=== PATIENT | male | born 1960 | race Caucasian/White ===

== ENCOUNTER → 2022-06-25 10:27 | Outpatient (CLI) | payer MEDICARE, SELFPAY ==
[2022-06-25 11:39] LABS: Hemoglobin A1C% w Est Avg Glu 5.7 % (4.0-6.0)
[2022-06-25 12:07] LABS: BUN Creatinine Ratio 15.7 (6-22); Blood Urea Nitrogen 13 mg/dL (9-20); Calcium 9.7 mg/dL (8.4-10.2); Carbon Dioxide 23 mmol/L (22-32); Chloride 100 mmol/L (98-107); Estimated Glomerular Filt Rate > 60 mL/min (>60); Glucose 114 mg/dL (80-110); HEMOLYSIS < 15 (0-50); Potassium 4.7 mmol/L (3.4-5.1); Sodium 136 mmol/L (137-145)
[2022-06-26 14:23] LABS: Appearance Urine UA CLEAR; Bilirubin Urine UA NEGATIVE (NEGATIVE); Color Urine UA YELLOW; Glucose Urine UA NEGATIVE (Negative); Ketones Urine UA NEGATIVE (NEGATIVE); Leukocyte Esterase Urine UA NEGATIVE (NEGATIVE); Nitrite Urine UA NEGATIVE (Negative); Occult Blood Urine UA 1+ (Negative); Protein Urine UA NEGATIVE (Negative); Urobilinogen Urine UA 0.2 E.U./dL (0.2)
[2022-06-26 14:42] LABS: Bacteria Urine None Seen; Culture Indicated Urine Cult Not Indicated; RBC Urine 1-5/HPF (0-5/HPF); Squamous Epithelial Cell Urine 0-1 /HPF (0-5/HPF); WBC Urine 0-1/HPF (0-5/HPF)
== END ==
PROVIDERS: Referring Provider Orthopaedic Surgery; Visit Provider Orthopaedic Surgery
DX: Z01.818 Encounter for other preprocedural examination (principal); R73.9 Hyperglycemia, unspecified; Z01.812 Encounter for preprocedural laboratory examination; N39.0 Urinary tract infection, site not specified
CPT/HCPCS: 36415; 80048; 81001; 83036; 93005

== ENCOUNTER → 2022-07-07 12:57 | Outpatient (CLI) | payer OTHER, SELFPAY ==
[2022-07-07 14:19] LABS: COVID19 -Nasal RAPID Negative (Negative)
== END ==
PROVIDERS: PCP Internal Medicine; Referring Provider Orthopaedic Surgery; Visit Provider Orthopaedic Surgery
DX: Z20.822 Contact with and (suspected) exposure to COVID-19 (principal)
CPT/HCPCS: 87635; C9803

== ENCOUNTER 2022-07-08 09:14 | Inpatient (IN) | payer OTHER, SELFPAY ==
[2022-07-01 13:49] VITALS: BMI 26.9
[2022-07-08] VITALS (18 sets, daily range): BP systolic 121–195; BP diastolic 58–127; PULSE 77–105; RESP 14–23; TEMP 36.1–37.4; O2SAT 94–99; BMI 26.9
--- NOTE | 2022-07-08 | DI.RAD.S_ITS ---
PROCEDURE: XR HIP W PEL IF DONE RT 2V INDICATIONS: right post op total hip TECHNIQUE: AP pelvis and lateral view of the right hip acquired. COMPARISON: None. FINDINGS: Bones: Patient is status post right hip arthroplasty, with hardware components in expected positions. The hip joint appears congruent. The visualized bony structures appear intact. Soft tissues: Overlying postoperative changes are noted. No suspicious soft tissue densities. IMPRESSION: Expected postsurgical change for right hip arthroplasty. Dictated by: Nida Adams MD, PhD on 07/08/2022 at 15:43 Approved by: Nida Adams MD, PhD on 07/08/2022 at 15:44
--- NOTE | 2022-07-08 06:00 | DI.RAD.S_ITS ---
PROCEDURE: XR PELVIS 1-2V INDICATIONS: intra op rt hip TECHNIQUE: Intra-operative view of the pelvis and hip acquired. COMPARISON: None. FINDINGS: Bones: Intraoperative devices prior to placement of arthroplasty prostheses are in expected positions. No fractures or suspicious bony lesions. Soft tissues: Overlying surgical retractors are present, along with other intraoperative changes. IMPRESSION: Expected intraoperative postsurgical change for right hip arthroplasty. Dictated by: Nida Adams MD, PhD on 07/08/2022 at 14:27 Approved by: Nida Adams MD, PhD on 07/08/2022 at 14:28
[2022-07-08] MEDS: ACETAMINOPHEN 325 MG TABLET 975 MG PO (09:53)
[2022-07-08] MEDS: CELECOXIB 200 MG CAPSULE PO (09:54)
[2022-07-08] MEDS: LACTATED RINGERS 1,000 ML 42 ML IV ×3 (10:00→13:37)
[2022-07-08] MEDS: VANCOMYCIN 1,000 MG/200 ML PIGGYBACK 200 MG IV (10:10)
--- NOTE | 2022-07-08 11:06 | PM.PREOP ---
Pre-operative Note COVID-19 COVID-19 status: Negative Interval Note History & Physical reviewed/Exam performed by Physician: Yes Changes to H&P: No
--- NOTE | 2022-07-08 11:15 | PM.OP.1 ---
Operative Date/Time/Diagnoses Date of procedure: 07/08/22 Time of procedure: 11:30 Pre-op diagnosis: right hip posttraumatic OA, retained blade plate Post-op diagnosis: same Procedure & Clinicians Procedure: Right total hip arthroplasty with revision components, removal of retained internal fixation blade plate and screws Same procedure as scheduled: Yes Indications: The patient has had a history of a complex right proximal femur fracture which went on to a delayed union and required revision surgery with a blade plate. He then had longstanding problems with his hip with disability and severe pain. He has had Progressively worsening right hip pain with radiographic changes consistent with arthritis, avascular necrosis of the femoral head and a retained blade plate was significant destruction of the acetabulum. Non-operative management has failed and the patient has requested total hip replacement. The risks, benefits and alternatives to surgery were discussed with the patient prior to proceeding. Risks discussed included, but were not limited to, failure to relieve pain, leg length discrepancy, dislocation, stiffness, infection, nerve damage, deep venous thrombosis, pulmonary embolism, stroke, coma, heart attack, permanent paralysis and , as well as the potential need for eventual revision of the prosthetic. Surgeon: Nella Wiley Six Color Press Operator: Rigoberto Naidu Anesthesia Type: General Operative Notes Findings: Severe destruction of the femoral head and acetabulum, soft bone, some deformity of the proximal femur, which stability with religious of some of the leg length discrepancy, adequate bone, no evidence of infection Closure Type: primary Specimen(s): other (One culture) Prosthetic devices, grafts, tissues, transplants, or devices: Wiley and nephew redapt size 19 x 190 femoral stem, 36 by -3 Oxinium femoral head, 54 R3 cup, neutral poly liner, one 6.5 mm screw Applied: drain(s) Estimated Blood Loss (mL): 250 Blood products transfused: none Procedure in detail: The patient was seen in the pre-operative area, where the patient identified the right hip as the operative site and this was marked with my initials. The patient received pre-operative antibiotics and was taken to the operating room and placed on the operative table in the left lateral decubitus position after satisfactory anesthesia. A director of hospitality out was performed. The right leg was prepared from the ankle to the iliac crest with ChloroPrep in the usual fashion and draped through sterile drapes. The hip was approached through an approximately 30 cm incision centered over the greater trochanter and curving gently posteriorly as it went proximally. He had a very extensive previous lateral incision which was used for a substantial component of the incision in order to allow for removal of the retained internal fixation and the blade plate. This was carried sharply to the fascia mary ann, which was divided and retracted with a self retaining retractor. An incision was made in the vastus lateralis after the fascia had been opened. The vastus was retracted primarily anteriorly. Dissection was carried out down to the proximal femur and the blade plate. The blade plate was then meticulously freed from bone. I used a small osteotome to chip bone away from the edge of the plate going down to the most distal aspect of the plate and also freeing it distally in order to allow the plate to slide distally as it was removed. The screws were removed. The blade plate handle was then placed on the blade plate and after meticulously freeing all scar tissue and soft tissues as well as some overlying bone from the plate the blade plate was removed. Next attention was directed to the more proximal aspect of the wound in the posterolateral approach to the hip. The trochanteric bursa was excised with care being taken to avoid the sciatic nerve, which was identified and protected throughout the case. The short external rotators were incised and the capsulomuscular flap was raised and tagged for later repair. Proximally half a cm of gluteus elicia insertion was released for the feet from the femur in order to allow mobilization of the femur. He had severe stiffness preoperatively. Had an 80 duction contracture his preoperative flexion was limited to about 30? with essentially no rotation. We meticulously mobilized the soft tissues. I specifically stripped all the short external rotators and the piriformis from the posterior aspect of the trochanter. I then dissection down more superiorly along the hip capsule and released anterior capsule and also release capsule along the posterior rim of the acetabulum in order to allow dislocation of the hip. Also incised along the inferior aspect of the capsule in order to allow dislocation of the hip. The hip was dislocated, and a femoral neck osteotomy performed approximately 15 mm above the lesser trochanter. Retractors were placed around the femur. The canal was opened with a box cutting osteotome, followed by a T handled reamer and a lateralizing reamer. The the lateralizing Reamer was used and then it was followed by sequential reaming. I could tell that I was getting a casket inspector distally. I used initially the Synergy technology and went up to a 16. It really did not feel like there was adequate rotational stability of the broach and I felt that we should probably switch to read cora technology in order to get a better casket inspector on the femur. I packed an E tape into the femur at this point and switched to working on the acetabulum. Retractors were placed to expose the acetabulum. The labrum and central soft tissues were removed. There was significant deformity of the acetabulum. I specifically centralized it initially and then progressively slowly reamed up the acetabulum. There was moderate amount of osteophyte more laterally both on the anterior aspect of the acetabulum as well as straight superior and posteriorly. Reaming was performed initially going up in 2 mm increments, then 1 mm increments until good bite was obtained with an odd sized reamer. The cup 1 mm larger than the last reamer was then inserted using the appropriate anteversion guides. The cup did have reasonable bite but was further stabilized with a screw which provided excellent bite. A trial neutral liner was placed. At this point we sequentially reamed until there was good chatter and good fixation with a read up Reamer. Initially went up to a 18 x 190. The body Reamer was placed in it was reamed. The broach was placed with the head and neck piece. A trial head and neck were then placed and the hip relocated and checked for leg length and stability. Some of the leg length discrepancy had been restored. It was actually pretty tight with a -3 femoral head. An intraoperative film confirmed the component position and no evidence of fracture. The patient was stable in the position of sleep, of squatting, and could be put through a range of motion with 45 degrees internal rotation without dislocation. At 80 degrees flexion, internal rotation to 70 was possible before dislocation. I felt I could go up 1 additional size in the femur and I meticulously reamed for insertion of a 19 mm stem. This was felt to be satisfactory and the appropriate components were opened, and the trials were removed. It was still quite stiff and the reduction was somewhat difficult. The acetabular liner was impacted into position. The final stem was then impacted into the prepared femoral canal. A brief Betadine soak was performed while trialing with head options. The hip was meticulously irrigated with normal saline. Finally the femoral head was impacted onto the stem. The acetabulum was cleared of all material and the hip relocated one final time. The capsulomuscular flap was then repaired to the greater trochanter though an awl hole using the tag sutures. The short external rotators were repaired with a nonabsorbable suture. A deep drain was placed and brought out anteriorly. Vastus lateralis was carefully closed. The fascia mary ann was closed with Vicryl. The subcutaneous layer was closed with barbed sutures and skin carmen. A karina dressing was applied and the patient was taken to recovery having tolerated the procedure well. Complications: none Post-operative Condition: stable Disposition: Acute Care Plan for aftercare: The patient will be maintained on a standard total hip replacement protocol with weight bearing as tolerated and posterior hip precautions. The patient will receive Aspirin and sequential compression devices for DVT prophylaxis. The patient will be discharged home when safe for the home environment.
[2022-07-08] MEDS: CEFAZOLIN 2 GM/100 ML PREMIX 100 ML IV ×2 (11:16→18:00)
[2022-07-08] MEDS: TRANEXAMIC ACID 1,000 MG VIAL 2000 MG INJ ×2 (11:39→14:05)
[2022-07-08] MEDS: BUPIVACAINE LIPOSOME 266 MG/20 ML VIAL INJ (12:00)
[2022-07-08] MEDS: BUPIVACAINE 0.25% (PF) 60 ML, EPINEPHrine 0.3 MG INJ (12:02)
[2022-07-08] MEDS: BUPIVACAINE 0.5% (PF) VIAL 30 ML INJ (12:05)
--- NOTE | 2022-07-08 12:12 | SUR.OPER ---
Lateral on padded Truman flat table. Gel axillary roll. Arms secured on padded armboard with pillow supporting top arm. Padded hip positioner braces x4 - anterior and posterior chest and pelvis. Additional gel pad used anterior pelvis. Gel pad under bottom leg from knee to foot and secured with tape over sheet.
[2022-07-08] MEDS: HYDROMORPHONE 2 MG INJ IV ×4 (14:58→15:21)
[2022-07-08] MEDS: hydrOXYzine 50 MG/ML INJ 25 MG IM (15:00)
[2022-07-08] MEDS: LABETALOL 20 MG/4 ML SYRINGE 10 MG IV (15:06)
[2022-07-08] MEDS: OXYCODONE IR 5 MG TABLET PO (15:28)
[2022-07-08] MEDS: HYDROMORPHONE 0.5 MG INJ 0.2 MG IV ×2 (16:20→20:51)
[2022-07-08] MEDS: LACTATED RINGERS 1,000 ML 125 ML IV (16:23)
[2022-07-08] MEDS: ONDANSETRON 4 MG/2 ML INJ IV (16:27)
[2022-07-08] MEDS: OXYCODONE IR 10 MG TABLET PO (16:28)
--- NOTE | 2022-07-08 17:41 | PT-IP ANOTE ---
Checked on pt and RN and PICTURE FRAME MAKER in room trying to get him comfortable. Pt refused PT d/t significant pain at this time. Check in AM.
[2022-07-08] MEDS: HYDROMORPHONE 2 MG TABLET PO (17:54)
[2022-07-08] MEDS: ACETAMINOPHEN 325 MG TABLET 650 MG PO (17:59)
[2022-07-08] MEDS: IBUPROFEN 400 MG TABLET PO (17:59)
[2022-07-08] MEDS: ASPIRIN EC 81 MG TABLET PO (20:50)
[2022-07-08] MEDS: LOSARTAN 50 MG TABLET PO (20:50)
[2022-07-08] MEDS: ATORVASTATIN 20 MG TABLET 10 MG PO (20:50)
[2022-07-08] MEDS: DOCUSATE 100 MG CAPSULE PO (20:52)
[2022-07-09] VITALS: BP 144/82; PULSE 86; RESP 14; TEMP 37.4; O2SAT 95
[2022-07-09] MEDS: LACTATED RINGERS 1,000 ML 125 ML IV (02:01)
[2022-07-09] MEDS: CEFAZOLIN 2 GM/100 ML PREMIX 100 ML IV (03:19)
[2022-07-09 04:20] VITALS: BP 141/64; PULSE 81; RESP 16; TEMP 36.7; O2SAT 96
[2022-07-09 06:02] LABS: Hematocrit 30.1 % (41-53); Hemoglobin 10.5 g/dL (13.5-17.5)
[2022-07-09] MEDS: OXYCODONE IR 5 MG TABLET PO (07:00)
--- NOTE | 2022-07-09 07:22 | P.DS_ITS ---
History of Present Illness History of Present Illness Date Patient Seen: 07/09/22 Time Patient Seen: 07:22 Chief complaint: Right hip pain Narrative: Patient's pain has been moderate. Denies fever or chills. No nausea vomiting. Patient has been able to get up with assistance and urinate on his own. He has his home to assist him. Otherwise without complaints. Discharge Providers Provider Date of admission: 07/08/22 09:14 Discharge Date: 07/09/22 Primary care physician: Qamar Marie MD Consults: 07/08/22 06:00 Consult to Anesthesiology Routine Comment: Consulting Provider: Anesthesiologist Reason for consultation: Regional block for post operative pain control 07/08/22 16:04 Consult to Discharge Planning Routine Comment: Consult to Physical Therapy Evaluate & Treat Comment: Physician Instructions: post op THALIA protocol Discharge provider: Rigoberto Naidu PA-C Summary Hospital Course Discharge Diagnosis: Right hip posttraumatic osteoarthritis, retained blade plate Postop anemia due to acute blood loss during surgery Hospital Course: Right total hip arthroplasty with revision components, removal of retained internal fixation blade plate and screws Same procedure as scheduled: Yes Indications: The patient has had a history of a complex right proximal femur fracture which went on to a delayed union and required revision surgery with a blade plate.? He then had longstanding problems with his hip with disability and severe pain.? He has had Progressively worsening right hip pain with radiographic changes consistent with arthritis, avascular necrosis of the femoral head and a retained blade plate was significant destruction of the acetabulum. Non-operative management has failed and the patient has requested total hip replacement. The risks, benefits and alternatives to surgery were discussed with the patient prior to proceeding. Risks discussed included, but were not limited to, failure to relieve pain, leg length discrepancy, dislocation, stiffness, infection, nerve damage, deep venous thrombosis, pulmonary embolism, stroke, coma, heart attack, permanent paralysis and , as well as the potential need for eventual revision of the prosthetic. Surgeon: Nella Wiley Meringuer: Rigoberto Naidu Anesthesia Type: General Operative Notes Findings: Severe destruction of the femoral head and acetabulum, soft bone, some deformity of the proximal femur, which stability with yazdanism of some of the leg length discrepancy, adequate bone, no evidence of infection Closure Type: primary Specimen(s): other (One culture) Prosthetic devices, grafts, tissues, transplants, or devices: Wiley and nephew redapt size 19 x 190 femoral stem, 36 by -3 Oxinium femoral head, 54 R3 cup, neutral poly liner, one 6.5 mm screw Applied: drain(s) Estimated Blood Loss (mL): 250 Blood products transfused: none Patient admitted for the above-mentioned procedure. Patient consented to the same. Patient taken operating room. Patient back in his room recovering well as in stable condition. Patient urinating on his own. Pain is well managed. Patient will work with Physical therapy this morning. Patient will be discharged home today after physical therapy if safe for home environment. Follow up in [facility] in 2 weeks as scheduled. Status at Discharge Cognitive/behavioral status at discharge: at baseline, oriented Functional status at discharge: uses cane/walker Overall status at discharge: patient is progressing back to baseline Exam Vital Signs (past 8 hours): - 07/09/22 00:00 07/09/22 04:20 Temperature 99.4 F 98.1 F Pulse Rate 86 81 Respiratory Rate 14 16 Blood Pressure 144/82 H 141/64 H Pulse Oximetry 95 96 Oxygen Flow Rate 0 0 Oxygen Delivery Method Room Air Oxygen Flow Rate 0 Narrative Exam Narrative: 62-year-old male resting comfortably in bed in no apparent distress. Karina dressing is on and functioning. Dressing is clean, dry and intact. Motor functions intact right lower extremity. Sensation grossly intact to light touch right lower extremity. Hemovac is also in place. Const General: cooperative and comfortable Orientation: alert HENMT Head: normal to inspection Resp Effort & Inspection: normal respiratory effort and able to speak in complete sentences Objective Labs Result Diagrams: 07/09/22 05:38 Labs: Laboratory Results - last 24 hr 07/09/22 05:38 Hgb 10.5 L Hct 30.1 L PFSH Medical History COVID-19 virus infection (01/21/22) Deviated septum Fall (~2007) HLD (hyperlipidemia) HTN (hypertension) Osteonecrosis Surgical History History of orthopedic surgery (~2007) History of orthopedic surgery (11/2008) History of orthopedic surgery (~2007) Hx of foot surgery (~2007) Social History household members: spouse and children Smoking Status: Current every day smoker alcohol intake: former Discharge Assessment & Plan Assessment and Plan Assessment: Patient progressing as expected. postop anemia due to blood loss during surgery Plan of Treatment: Discontinue Hemovac prior to discharge Karina instructions reviewed. Multimodal pain management Patient be maintained on standard total hip replacement protocol with weight- bearing as tolerated and posterior hip precautions Aspirin and SCDs for DVT prophylaxis Discharge home today after physical therapy if safe for home environment Discharge Plan Discharge Plan Patient Disposition: Home Provider Discharge Comment: Discharge home today after physical therapy if safe for home environment Discharge orders & Medications Prescriptions: New acetaminophen 325 mg Tablet 650 mg PO Q6HR Qty: 60 0RF aspirin 81 mg Tablet,Delayed Release (Dr/Ec) 81 mg PO BID Qty: 60 0RF docusate sodium 100 mg Capsule 100 mg PO BID Qty: 20 0RF ibuprofen 400 mg Tablet 400 mg PO Q6HR Qty: 60 0RF oxycodone 10 mg Tablet 10 mg PO Q3HR PRN (Reason: Pain, Severe (7-10)) Qty: 60 0RF Continued losartan 50 mg Tablet 50 mg PO QPM simvastatin 20 mg Tablet 20 mg PO QPM omeprazole 20 mg Tablet,Delayed Release (Dr/Ec) 20 mg PO QPM docusate sodium [Colace] 100 mg Capsule 250 mg PO DAILY simethicone [Gas-X Extra Strength] 125 mg Capsule 125 mg PO DAILY Discontinued ibuprofen 200 mg Tablet 800 mg PO QPM oxycodone 10 mg Tablet 10 mg PO QID Follow up/Referrals: Qamar Marie MD [Primary Care Provider] - Nella Wiley MD [Physician] - As previously scheduled (Two weeks as scheduled) Diet/Activity/Treatments Diet: Diet as Tolerated Activity: Weightbearing as tolerated, posterior hip precautions Skin/Wound/Dressing Care Report to your healthcare provider any signs of infection, such as:: chills, fever, increased pain, unusual drainage and unusual redness Dressing: Keep dressing clean and dry, karina dressing instructions provided Visit Report/Discharge Packet Instructions: DI for Hip Replacement, DI for Prescription Opioid Use Stand Alone Forms: Surgery Discharge Discharge Data Primary Care Provider: Qamar Marie
[2022-07-09 08:11] VITALS: BP 134/70; PULSE 85; RESP 17; TEMP 36.7; O2SAT 96
[2022-07-09] MEDS: DOCUSATE 100 MG CAPSULE PO (08:31)
[2022-07-09] MEDS: ASPIRIN EC 81 MG TABLET PO (08:31)
--- NOTE | 2022-07-09 08:42 | CM.DANOTE ---
DCP Assessment: Payor confirmed: [employer] PCP confirmed: Qamar Marie MD Pt is a 62 y.o. M who presented to the hospital for a scheduled R THALIA surgery with Dr. Wiley. Pt brought up to the AC unit for post operative management of surgical procedure. DCP met with pt this morning to discuss discharge needs. Pt laying in bed. DCP introduced self and role. Pt is independent at baseline. Pt lives in [place] with his spouse, Sissy. Pt denies DME use and states that he can drive but has not been driving lately due to the pain in his leg. Pt does not have outpatient PT scheduled [facility] Pt to work with PT today to determine any needs. Whiteboard updated and instructed to call. Pt thankful for discussion. P: Pt to work with PT today. Once clear, anticipate discharge home via spouse POV. DCP to continue to follow and await PT recommendations. Namrata Moraes RN/BETINA Discharge Planning/Care Management Advanced directive, confirm from FAMILY Start: 07/08/22 18:07 Freq: Q24H Status: Active Protocol: Document 07/08/22 19:55 MS (Rec: 07/08/22 22:31 MS [id number]) Advance Directive, confirm on record Time 22:28 Person contacted Pt Copy received No CM Discharge Assessment Start: 07/09/22 08:39 Freq: Status: Active Protocol: Document 07/09/22 08:39 AJ (Rec: 07/09/22 08:41 AJ [id number]) Discharge Planning Assessment Assigned Tie Worker Namrata Moraes RN/BETINA Advance Directives? No Advance Directives on File No History Provided By Patient Prior Living Arrangements House Household Members spouse,children Type of transporation used prior to Drives own vehicle admit Independent with ADL's Yes Is patient alert and oriented? Yes Discharge Plan Home Referrals Initiated None needed Additional Comment At this time. Whiteboard Updated in Patient Room with Yes name and ext. # of Tie Worker Comment Instructed to call Review Status In Process Please Provide Date Initial DC 07/09/22 Assessment Was Performed Next Review Type Continued Stay Review Pre-Anesthesia Assessment Start: 07/01/22 13:49 Freq: Status: Active Protocol: Document 07/01/22 13:49 CAB (Rec: 07/01/22 14:38 CAB [id number]) Pre-Anesthesia Assessment Preferred Name [place] Patient Information Reviewed Via Phone Assessment Assessment Completed With Patient Diagnostic Results BMP/CMP,EKG Comment Labs (BMP, UA only)/ECG @ [facility] 06/25/22, COVID screen @ [facility]- needs to schedule Primary Care Provider Qamar Marie Seen Specialist in Last 12 Months Yes Specialist Seen Orthopedist Primary Language Hebrew Net Sql Developer Required No Height 175.26 cm Weight 82.554 kg Body Mass Index (BMI) 26.9 Hearing Ability Normal Visual Assist Glasses Dentition Type Teeth, Natural Present,Teeth, Missing Barriers to Learning None Hx Anesthesia Reactions No Hx Family Anesthesia Reaction No Hx Malignant Hyperthermia No Hx Blood Transfusions No Anesthesia Review Requested No alcohol intake former Smoking Status Current every day smoker Tobacco type cigarettes Smoking packs per day 0.75 Substance Use Type marijuana Comment Advised not to smoke marijuana 24 hours prior Pain Present Pain Reported Musculoskeletal Symptoms Abnormal Gait,Back Pain, Difficulty Walking,Joint Pain History of Falling (Recent or History of No ) Patient is completely paralyzed or No completely immobile Prosthesis or Orthotic Device Cane,Front Wheel Walker Mental Status Oriented to own ability Is patient on oxygen? No Does patient have JALLOH/SOB No Hx Sleep Apnea No Currently Taking a Beta Seth No Hx Chest Pain No Hx SOB No Hx Syncope or Dizziness No Anti-Coagulant Therapy No Has a Mail Truck Driver No Cardiac Testing No Hx Pacemaker/ICD No Pacemaker Rep Required? No Diet Type At Home Regular Dysphagia No Gastrointestinal Symptoms Reflux Chronic UTI No Urinary Catheter Present No Hx Urinary Self Catheterization No Diabetes No Hx Drug Resistant Organism No Presence of External or Internal Medical Yes: Right femur/arm/heel Devices Received a COVID vaccine? Yes Marital Status Lives With spouse,children Current Living Arrangements House Number of Floors (Floors) One Floor Support System Child/Children,Spouse Does the Patient Have Assistance After Yes Surgery Patient Discharge Plan Description Return Home Comment Pt advised 2 day length of stay per surgeon Feels Safe in Current Environment Yes Been Physically Hurt or Threatened By a No Person in Current Environment Do you have thoughts of harming yourself None or others? Are you currently considering suicide? No Do you have a plan to hurt yourself or No Plan others? Do You Have Any Spiritual Beliefs That No May Affect Your HC Choices? Do You Have Any Cultural Practices That No May Affect Your HC Choices? Who Can We Speak to About Patient's Care Family, friends Identifying Code for Release of Patient Declines to issue Information Health Care Proxy/Next of Kin Sissy () Health Care Proxy Emergency Contact Name Sissy () Emergency Contact Advance Directives? No Power of Title 1 Tutor No PAC Instructions Durable medical equipment, Medications to take/avoid, Nasal antibiotic,No ETOH/ petroleum product on skin DOS, NPO,Sensory aids,Sturdy shoes/ comfortable clothes,Do not bring valuables and remove jewelry
--- NOTE | 2022-07-09 08:55 | PT.IIE ---
Current Diagnoses Unilateral post-traumatic osteoarthritis, right hip (07/08/22) Pain in right hip (07/08/22) Osteonecrosis, unspecified (07/08/22) Displaced subtrochanteric fracture of right femur, sequela (07/08/22) Surgery Performed Operation Date: 07/08/22 11:15 Actual Procedures p removal, hardware, hip w. conversion to total hip arthroplasty(Right) - Nella Wiley MD Surgical History (Last Reviewed 07/09/22 @ 07:25 by Rigoberto Naidu PA-C) History of orthopedic surgery (~2007) History of orthopedic surgery (11/2008) History of orthopedic surgery (~2007) Hx of foot surgery (~2007) Medical History (Last Reviewed 07/09/22 @ 07:25 by Rigoberto Naidu PA-C) COVID-19 virus infection (01/21/22) Deviated septum Fall (~2007) HLD (hyperlipidemia) HTN (hypertension) Osteonecrosis Physical Therapy Inpatient Evaluation/Re-Eval M1 PT/OT-IP Prior Functional Status Start: 07/09/22 11:32 Freq: NEEDED Status: Active Protocol: Document 07/09/22 08:55 AB (Rec: 07/09/22 11:44 AB [email or web address]) Medical Review Prior Functional Status Medical History Reviewed Yes Communication able to make needs known Mobility and Gait pt stated that he is independent with all mobilities and ambulation without AD but occasionally uses a SPC Social History Household Members spouse,children Living Arrangements House Number of Floors (Floors) One Floor Number of Stairs To Enter/Railing? 2 platform steps to enter Home Environment High Toilet,Tub/Shower Home Equipment Front Wheel Walker,Straight Cane,Hand Held Shower Additional Social History Comment pt sleeps on his recliner M2 PT-IP Current Condition Start: 07/09/22 11:32 Freq: NEEDED Status: Active Protocol: Document 07/09/22 08:55 AB (Rec: 07/09/22 11:44 AB [email or web address]) Physical Therapy Current Condition Current Condition Evaluation Date 07/09/22 Treatment Diagnosis s/p R THALIA rev posterior approach; difficulty in walking Onset Date 07/08/22 M3 PT-IP Subjective Start: 07/09/22 11:32 Freq: NEEDED Status: Active Protocol: Document 07/09/22 08:55 AB (Rec: 07/09/22 11:44 AB [email or web address]) Subjective Physical Therapy Visit Type Type Initial Evaluation Visit Start Time 08:55 Visit Stop Time 09:51 Total Visit Minutes 56 Number of THERAPY COORDINATOR Visits 0 Physical Therapy Visit Comments Patient Comments agreeable to do PT Therapy Pain Assessment Pain When Pain Assessed At Rest Pain Present Pain Present Pain Reported Location right hip Intensity 5 Scale Used Numeric (0 - 10) Pain Management Techniques Distraction,Modification of Treatment,Re-positioning, Timing of Activity with Medications M4 PT-IP Mobility and Gait Start: 07/09/22 11:32 Freq: NEEDED Status: Active Protocol: Document 07/09/22 08:55 AB (Rec: 07/09/22 11:44 AB [email or web address]) PT-Bed Mobility Assessment Supine to Sit Supine to Sit Maximum Assistance Sit to Supine Sit to Supine Maximum Assistance PT-Transfer Assessment Sit to and From Stand Sit to and from Stand Standby Assistance,Contact Guard Assistance,1 Person Assistance,Use of Upper Extremities Equipment Transfer Assistive Device Gait Belt,Front Wheeled Walker Orthotic/Prosthetic Devices or Brace: No Transfers Transfer Destination Chair Transfer Technique Stand Step Pivot Transfer Ability Level of Assist Standby Assistance,Contact Guard Assistance,1 Person Assistance,Use of Upper Extremities Comments Mobility Comments educated pt on posterior hip precautions and pt requires cues to recall. pt requires max a for supine to sit. pt sleeps on his recliner at home due to chronic LBP and hip pain. completed sit to stand from EOB CGA. pt tends to rotate to the L and cued for hip precautions. completed step transfer to the chair using FWW SBA to CGA. educated pt on hip precautions, safety and techniques with sit to stand. pt completed sit to stand from the chair with less rotation SBA and instructed to sit back down. educated on stair climbing techniques. pt completed sit to stand from chair SBA and ambulated ~ 30 ft using FWW SBA. completed up/down platform step CGA and cues for techniques. pt repeated and not needing cues on 2nd repetition. pt ambulated back to his room and requested to go back to bed. completed sit to supine max A for LE elevation. positioned in bed. call light and table placed within reach. caregiver training set up at 1pm. Gait Assessment Gait Gait Assistance Required: Standby Assistance,Contact Guard Assist Distance (Feet) 30 Able to Maintain Weight Bearing Status Yes During Gait Assistive Devices Assistive Device Gait Belt,Front Wheeled Walker Gait Deviations General Gait Pattern Antalgic,Decreased Stride Length,Decreased Feet Clearance,Step-to Gait Factors Limiting Gait Function Factors Limiting Gait Function Decreased Activity Tolerance, Decreased Strength,Difficulty Following Directions,Limited Range of Motion,Pain,Poor Balance,Poor Safety Awareness Stair Climbing Assessment Evaluation Level of Assist On Stairs Contact Guard Assistance,1 Person Assistance Devices Stair Climbing Assistive Devices Front Wheel Walker Technique/Endurance Stair Climbing Direction Ascend and Descend Stair Climbing Technique Step to Step Number of Steps Climbed 1 Query Text: Stair Climbing Set # Repetitions (reps) 2 PT-Balance Assessment Sitting Balance and Reactions Static Sitting Balance Ability Good Dynamic Sitting Balance Ability Fair Standing Balance and Reactions Static Standing Balance Ability Fair Dynamic Standing Balance Ability Fair Device Used FWW M5 PT-IP Objective Assessments Start: 07/09/22 11:32 Freq: NEEDED Status: Active Protocol: Document 07/09/22 08:55 AB (Rec: 07/09/22 11:44 AB [email or web address]) Orientation Orientation/Cognition Level of Alertness Alert Orientation Name Safety Awareness Decreased Safety Awareness Memory Description Short Term Impaired Gross Range of Motion Lower Extremity ROM Assessment Within Functional Limits Strength Lower Extremity Strength Assessment Right Impaired Hip 3-/5 Knee 3+/5 Sensation Assessment Sensation Gross Sensation WNL Muscle Tone Muscle Tone WNL Yes M6 PT-IP Treatment Start: 07/09/22 11:32 Freq: NEEDED Status: Active Protocol: Document 07/09/22 08:55 AB (Rec: 07/09/22 11:44 AB [email or web address]) Physical Therapy Treatment Education Education Provided Precautions,Weight Bearing Status,Post-Op Packet,Safety M7 PT-IP Assessment and Plan Start: 07/09/22 11:32 Freq: NEEDED Status: Active Protocol: Document 07/09/22 08:55 AB (Rec: 07/09/22 11:44 AB [email or web address]) PT Summary Assessment and Plan Potential Rehabilitation Potential Fair Status of Condition at Evaluation Stable Summary Impairments Pain,ROM,Strength,Balance, Coordination,Sensation,Tone, Cognition,Bed Mobility, Transfers,Gait,Activity Tolerance Assessment Summary pt requiring SBA to CGA with mobility using FWW and needs cues for precautions and safety. caregiver training set up at 1 pm. will continue to assess progress. Goals Bed Mobility Goal Independent Transfer Goal Independent,Front Wheeled Walker Gait Goal Independent,Front Wheel Walker Gait Distance 100 Other Goals up/down 2 platform step SBA using FWW Days to Meet Goals 5 Frequency of Treatment Frequency Of Treatment Twice a Day Treatment Plan Physical Therapy Treatment Plan Bed Mobility Training,Transfer Training,Gait Training, Therapeutic Exercise,Balance Retraining,Post Op Education, Discharge Planning,Hot or Cold Pack,Neuromuscular Re-ed, Coordination Retraining,Manual Therapy Precautions Posterior Hip Precautions No Hip Flexion > 90 degrees,No Hip Internal Rotation,No Hip Adduction Weight Bearing Status Weight Bearing Status Weight Bear as Tolerated Allowed Weight Bearing Amount (enter % RLE WBAT or #) (%) Recommendations To Nursing Amount of Assist Needed 1 Person Assist Discharge Recommendations PT Discharge Recommendations Home with Assistance, Outpatient PT Transportation Needs at Discharge Private Vehicle
[2022-07-09] MEDS: OXYCODONE IR 10 MG TABLET PO (10:12)
[2022-07-09] MEDS: ACETAMINOPHEN 325 MG TABLET 650 MG PO (11:59)
[2022-07-09] MEDS: IBUPROFEN 400 MG TABLET PO (11:59)
--- NOTE | 2022-07-09 13:15 | PT.IPTN ---
Current Diagnoses Unilateral post-traumatic osteoarthritis, right hip (07/08/22) Pain in right hip (07/08/22) Osteonecrosis, unspecified (07/08/22) Displaced subtrochanteric fracture of right femur, sequela (07/08/22) Surgery Performed Operation Date: 07/08/22 11:15 Actual Procedures p removal, hardware, hip w. conversion to total hip arthroplasty(Right) - Nella Wiley MD Physical Therapy Treatment Note M2 PT-IP Current Condition Start: 07/09/22 11:32 Freq: NEEDED Status: Active Protocol: Document 07/09/22 08:55 AB (Rec: 07/09/22 11:44 AB [email or web address]) Physical Therapy Current Condition Current Condition Evaluation Date 07/09/22 Treatment Diagnosis s/p R THALIA rev posterior approach; difficulty in walking Onset Date 07/08/22 M3 PT-IP Subjective Start: 07/09/22 11:32 Freq: NEEDED Status: Active Protocol: Document 07/09/22 13:15 AB (Rec: 07/09/22 14:04 AB [email or web address]) Subjective Physical Therapy Visit Type Type Treatment Note Visit Start Time 13:15 Visit Stop Time 13:40 Total Visit Minutes 25 Number of [employer] Visits 0 M4 PT-IP Mobility and Gait Start: 07/09/22 11:32 Freq: NEEDED Status: Active Protocol: Document 07/09/22 13:15 AB (Rec: 07/09/22 14:04 AB [email or web address]) PT-Bed Mobility Assessment Supine to Sit Supine to Sit Standby Assistance PT-Transfer Assessment Sit to and From Stand Sit to and from Stand Standby Assistance,Maximum Assistance Equipment Transfer Assistive Device Gait Belt,Front Wheeled Walker Orthotic/Prosthetic Devices or Brace: No Transfers Transfer Destination Chair Transfer Technique Stand Step Pivot Transfer Ability Level of Assist Standby Assistance,Use of Upper Extremities Comments Mobility Comments spouse and son in room. spouse stated that she is a learning support aide. educated and reviewed posterior hip precautions with family and pt . pt completed supine to sit from bed with spouse assisting . pt asked his son to assist him with sit to stand by pulling on son's hand. step transfer using fWW to chair SBA. educated pt on sit to stand again and transfer. spouse was able to put safety belt on pt. assisted pt with sit to stand and ambulation using FWW ~30 ft. pt completed up/down step using FWW and spouse assisting CGA. completed x 2. pt ambulated back to the chair SBA using FWW. positioned pt on the chair. call light and table placed within reach. informed nurse that pt is waiting d/c. Gait Assessment Gait Gait Assistance Required: Standby Assistance,Contact Guard Assist Distance (Feet) 30 Able to Maintain Weight Bearing Status Yes During Gait Assistive Devices Assistive Device Gait Belt,Front Wheeled Walker Orthotic/Prosthetic Devices or Brace: No Gait Deviations General Gait Pattern Decreased Stride Length, Decreased Feet Clearance Factors Limiting Gait Function Factors Limiting Gait Function Decreased Activity Tolerance, Difficulty Following Directions,Limited Range of Motion,Pain,Poor Balance,Poor Safety Awareness Stair Climbing Assessment Evaluation Level of Assist On Stairs Contact Guard Assistance Devices Stair Climbing Assistive Devices Front Wheel Walker Technique/Endurance Stair Climbing Direction Ascend and Descend Stair Climbing Technique Step to Step Number of Steps Climbed 1 Stair Climbing Set # Repetitions (reps) 2 M5 PT-IP Objective Assessments Start: 07/09/22 11:32 Freq: NEEDED Status: Active Protocol: Document 07/09/22 08:55 AB (Rec: 07/09/22 11:44 [email or web address] Orientation Orientation/Cognition Level of Alertness Alert Orientation Name Safety Awareness Decreased Safety Awareness Memory Description Short Term Impaired Gross Range of Motion Lower Extremity ROM Assessment Within Functional Limits Strength Lower Extremity Strength Assessment Right Impaired Hip 3-/5 Knee 3+/5 Sensation Assessment Sensation Gross Sensation WNL Muscle Tone Muscle Tone WNL Yes M6 PT-IP Treatment Start: 07/09/22 11:32 Freq: NEEDED Status: Active Protocol: Document 07/09/22 13:15 AB (Rec: 07/09/22 14:04 AB [email or web address]) Physical Therapy Treatment Education Education Provided Precautions,Safety M7 PT-IP Assessment and Plan Start: 07/09/22 11:32 Freq: NEEDED Status: Active Protocol: Document 07/09/22 13:15 AB (Rec: 07/09/22 14:04 AB [email or web address]) PT Summary Assessment and Plan Potential Rehabilitation Potential Good Summary Impairments Pain,ROM,Strength,Balance, Coordination,Sensation,Tone, Cognition,Bed Mobility, Transfers,Gait,Activity Tolerance Progress Towards Goals Slow Progress due to Medical Issues,Slow Progress due to Activity Tolerance Assessment Summary caregiver training completed and spouse was able to assist pt safely. pt plans to go home with assist. reminded about scheduling for outpt PT and pt understood. pt may go home when medically stable. Goals Bed Mobility Goal Independent Transfer Goal Independent,Front Wheeled Walker Gait Goal Independent,Front Wheel Walker Gait Distance 100 Other Goals up/down 2 platform step SBA using FWW Days to Meet Goals 5 Frequency of Treatment Frequency Of Treatment Twice a Day Treatment Plan Physical Therapy Treatment Plan Bed Mobility Training,Transfer Training,Gait Training, Therapeutic Exercise,Balance Retraining,Post Op Education, Discharge Planning,Hot or Cold Pack,Neuromuscular Re-ed, Coordination Retraining,Manual Therapy Precautions Posterior Hip Precautions No Hip Flexion > 90 degrees,No Hip Internal Rotation,No Hip Adduction Weight Bearing Status Weight Bearing Status Weight Bear as Tolerated Allowed Weight Bearing Amount (enter % RLE WBAT or #) (%) Recommendations To Nursing Amount of Assist Needed 1 Person Assist Discharge Recommendations PT Discharge Recommendations Home with Assistance, Outpatient PT Transportation Needs at Discharge Private Vehicle
--- NOTE | 2022-07-09 14:19 | PC.NURSE ---
Day hsift: Left uit at approx 1400 via WC. NEEMA Menjivar took home to car. Pt will be driven home by his Spouse. Paperwork signed and all questions answered. Dressing remains CDI and Naz device flashes green. scripts sent to Pt's pharmacy electronic. CMS remains intact and PPP. Cleared by PT.
== END 2022-07-09 14:22 | disposition home or self-care (01) | DRG 468 ==
PROVIDERS: Admitting Provider Orthopaedic Surgery; PCP Internal Medicine; Referring Provider Internal Medicine; Visit Provider Orthopaedic Surgery
PROC: 0SR90J9 Replacement of Right Hip Joint with Synthetic Substitute, Cemented, Open Approach (ICD-10-PCS; principal; 2022-07-08 11:15)
DX: M16.51 Unilateral post-traumatic osteoarthritis, right hip (principal); M89.8X8 Other specified disorders of bone, other site; I10 Essential (primary) hypertension; E78.5 Hyperlipidemia, unspecified; F17.210 Nicotine dependence, cigarettes, uncomplicated; Z20.822 Contact with and (suspected) exposure to COVID-19
CPT/HCPCS: 36415; 72170; 73502; 85014; 85018; 87070; 87075; 87176; 87205; 87635; 97116; 97162; 97530; C1776; C9803; C9290; J0171; J0690; J1170; J2405; J2704; J3010; J3410